=== PATIENT | female | born 1970 | race Caucasian/White ===

== ENCOUNTER 2017-11-29 11:53 | Emergency (ER) | payer OTHER ==
[~2017-11-29] VITALS: Ht 142.2 cm; Wt 50.1 kg
[~2017-11-29 11:53] MED LIST: B COMPLEX PO; CALCIUM 500 MG1 EACH PO; CEFTIN500 MG PO; CENTRUM SILVER1 EAC4 PO; DEPAKENE250 MG PO; DEPAKOTE ER250 MG PO; DEPAKOTE250 MG PO; FISH OIL 1,0001 EAC7 PO; FLONASE16 G1 BOTH NARES; ONE DAILY1 EAC3 PO; TYLENOL EXTRA500 MG PO; VIMPAT100 MG PO; VIMPAT150 MG PO; VITAMIN B-650 M1 PO; [UNRECOGNIZED DRUG - OTHER] PO
[2017-11-29 12:39] LABS: HEMATOCRIT 42.8 % (36.0-46.0); MCH 32.4 PG (29.0-34.0); MCV 92.4 FL (83-99); PLATELET COUNT 185 K/uL (156-360); RBC DIS.WIDTH-CV 12.3 % (11.8-14.6); RBC DIS.WIDTH-SD 41.8 % (39-53); RED BLOOD COUNT 4.63 M/uL (3.80-5.20); WHITE BLOOD COUNT 3.9 K/uL (4.1-10.2)
[2017-11-29 12:49] LABS: ALBUMIN 5.2 g/dL (3.2-4.8); CHLORIDE 100 mEq/L (99-109); POTASSIUM 4.5 mEq/L (3.7-5.4); SODIUM 139 mEq/L (136-147)
[2017-11-29] MEDS ORDERED: KENALOG,ARISTOC80 GM TP (12:49)
[2017-11-29 12:51] LABS: GLUCOSE 114 mg/dL (70-99); TOTAL PROTEIN 9.5 g/dL (6.4-8.3)
[2017-11-29 12:53] LABS: TOTAL BILIRUBIN 0.5 mg/dL (0.0-1.0)
[2017-11-29 12:55] LABS: ALKALINE PHOSPHATASE 68 IU/L (3-129); CREATININE 0.7 mg/dL (0.6-1.3); GFR ESTIMATE (CALCULATED) > 59 mL/min/
[2017-11-29 12:56] LABS: UREA NITROGEN (BUN) 11 mg/dL (9-23)
[2017-11-29 12:57] LABS: AST (GOT) 31 IU/L (2-34)
[2017-11-29 12:58] LABS: ALT (GPT) 42 IU/L (3-49)
[2017-11-29 13:11] LABS: VALPROIC ACID (DEPAKOTE) 116.8 MCG/ML (50-100)
[2017-11-29 14:00] LABS: APPEARANCE CLEAR ((CLEAR)); BILIRUBIN NEGATIVE; BLOOD NEGATIVE; COLOR YELLOW ((YELLOW)); GLUCOSE (STRIP) NEGATIVE; KETONES 5; LEUKOCYTES NEGATIVE; NITRITE NEGATIVE; PROTEIN (STRIP) NEGATIVE; SPECIFIC GRAVITY 1.009 (1.000-1.030); UCUL ADDED? NO; UROBILINOGEN 0.2 MG/DL (0.2-1.0)
[2017-11-29 14:32] VITALS: BP 136/71
== END 2017-11-29 14:43 | disposition home or self-care (01) ==
LOC: EME 11:53
PROVIDERS: Nurse Practitioner Family
DX: G40.909 Epilepsy, unspecified, not intractable, without status epilepticus (principal); F79 Unspecified intellectual disabilities
CPT/HCPCS: 71046; 80053; 80164; 81003; 82948; 85027; 99281; 99284